=== PATIENT | male | born 1980 | race Caucasian/White ===

== ENCOUNTER 2018-08-04 19:50 | Emergency (ER) | payer BC ==
[2018-08-04 20:13] VITALS: BP 131/76
--- NOTE | 2018-08-04 20:17 | UC ---
Throat Pain/Nasal Vern HPI - HPI Summary HPI Summary: 37 yo male presents with sinus pain/pressure/congestion for the last 3 days. He tells me that he gets 2 sinus infections a year. "Once in July and Once in December every year". He has not been taking anything OTC. Denies fever, chills, sore throat, cough. - History of Current Complaint Chief Complaint: UCRespiratory Stated Complaint: SINUSES Time Seen by Provider: 08/04/18 20:17 Hx Obtained From: Patient Onset/Duration: Gradual Onset Severity: Moderate Pain Intensity: 7 Pain Scale Used: 0-10 Numeric - Allergies/Home Medications Allergies/Adverse Reactions: Allergies Allergy/AdvReac Type Severity Reaction Status Date / Time No Known Allergies Allergy Verified 08/04/18 20:14 Home Medications: Home Medications Levocetirizine Dihydrochloride [Xyzal] 5 mg PO DAILY 08/04/18 [History Confirmed 08/04/18] PMH/Surg Hx/FS Hx/Imm Hx - Additional Past Medical History Additional PMH: Seasonal allergies - Surgical History Surgical History: Yes Surgery Procedure, Year, and Place: Sinus surgery, 2010, [facility] [place]. Bilateral Inguinal Herniorhaphy - Family History Known Family History: Positive: None - Social History Occupation: Employed Full-time Lives: With Family Alcohol Use: None Substance Use Type: None Smoking Status (MU): Never Smoked Tobacco - Immunization History Most Recent Influenza Vaccination: July 2013 Review of Systems Constitutional: Negative Skin: Negative Eyes: Negative ENT: Nasal Discharge, Sinus Congestion, Sinus Pain/Tenderness Respiratory: Negative Cardiovascular: Negative Gastrointestinal: Negative Neurovascular: Negative Musculoskeletal: Negative Neurological: Negative Psychological: Negative All Other Systems Reviewed And Are Negative: Yes Physical Exam - Summary Physical Exam Summary: GENERAL: NAD. WDWN. No pain distress. SKIN: No rashes, sores, lesions, or open wounds. HEENT: Head: AT/NC Eyes: EOM intact. Conjunctiva clear without inflammation or discharge. Ears: Hearing grossly normal. TMs intact, no bulging, erythema, or edema. Nose: Nasal mucosa pink and moist. TTP maxillary and frontal sinus. Throat: Posterior oropharynx without exudates, erythema, or tonsillar enlargement. Uvula midline. NECK: Supple. Nontender. No lymphadenopathy. CHEST: CTAB. No r/r/w. No accessory muscle use. Breathing comfortably and in no distress. CV: RRR. Without m/r/g. Pulses intact. Cap refill <2seconds NEURO: Alert. PSYCH: Age appropriate behavior. Triage Information Reviewed: Yes Vital Signs: Initial Vital Signs Temp 98.4 F 08/04/18 20:08 Pulse 74 08/04/18 20:08 Resp 12 08/04/18 20:08 BP 131/76 08/04/18 20:08 Pulse Ox 99 08/04/18 20:08 Vital Signs Reviewed: Yes Throat Pain/Nasal Course/Dx - Course Course Of Treatment: Discussed with pt that his symptoms could likely be viral and antibiotics are not indicated at this time and I recommended OTC treatments. He is adamant that he needs antibitoics as he has gotten them every year. He is asking for amoxicillin or augmentin. - Differential Dx/Diagnosis Provider Diagnoses: Sinusitis Discharge - Sign-Out/Discharge Documenting (check all that apply): Patient Departure All imaging exams completed and their final reports reviewed: No Studies - Discharge Plan Condition: Stable Disposition: HOME Prescriptions: Amoxicillin PO (*) [Amoxicillin 875 MG (*)] 875 mg PO BID #14 tab Patient Education Materials: Sinusitis (ED) Referrals: Andrei Crow MD [Primary Care Provider] - Additional Instructions: If you develop a fever, shortness of breath, chest pain, new or worsening symptoms - please call your PCP or go to the ED. - Billing Disposition and Condition Condition: STABLE Disposition: Home
== END 2018-08-04 20:24 | disposition home or self-care (01) ==
LOC: UCCORT 19:50
DX: J32.9 Chronic sinusitis, unspecified (principal); J30.2 Other seasonal allergic rhinitis
CPT/HCPCS: 99202; G0463